=== PATIENT | male | born 1950 | race Caucasian/White ===

== ENCOUNTER 2018-02-03 12:25 | Inpatient (IN) | payer MEDICARE, MEDICAID ==
[~2018-02-03] VITALS: Ht 182.9 cm; Wt 84.2 kg
[~2018-02-03 12:25] MED LIST: AMLO5TAB16 PO; ASPI-1265 PO; ATOR10TA PO; CLOP75TA35 PO; ENOX100D5 SUBCUT; LISI-604 PO; NITR0.4T51 SL; SPIR25TA3 PO; WARF2.5T PO
[2018-02-03 13:45] LABS: BASOPHILS % (AUTO) 0.3 % (0-1); EOSINOPHILS # (AUTO) 0.1 X10'3 (0-0.9); EOSINOPHILS % (AUTO) 0.9 % (0-6); HEMOGLOBIN 12.9 g/dl (14.0-17.9); MEAN CORPUSCULAR HEMOGLOBIN 30.1 PG (27.0-31.0); MEAN CORPUSCULAR VOLUME 91.1 FL (78-98); MEAN PLATELET VOLUME 8.3 FL (7.4-10.4); MONOCYTES # (AUTO) 0.8 X10'3 (0-0.9); MONOCYTES % (AUTO) 11.4 % (2-12); NEUTROPHILS # (AUTO) 4.8 X10'3 (1.8-7.7); NEUTROPHILS % (AUTO) 72.4 % (42-75); PLATELET COUNT 178 X10'3 (140-440); RED BLOOD COUNT 4.29 X10'6 (4.70-6.10); RED CELL DISTRIBUTION WIDTH 13.1 % (11.5-14.5); WHITE BLOOD COUNT 6.6 X10'3 (4.5-11.0)
[2018-02-03 13:56] LABS: PARTIAL THROMBOPLASTIN TIME 30 SECONDS (22-32); PROTHROMBIN TIME 10.2 SECONDS (9.0-12.0)
[2018-02-03 14:02] LABS: ALANINE AMINOTRANSFERASE 53 U/L (12-78); ALBUMIN 3.4 G/DL (3.4-5.0); ALBUMIN/GLOBULIN RATIO 0.8 (1.1-1.5); ALKALINE PHOSPHATASE 75 IU/L (46-116); ANION GAP 7 (8-16); ASPARTATE AMINO TRANSFERASE 31 U/L (10-37); BILIRUBIN,TOTAL 1.2 MG/DL (0.1-1.0); BLOOD UREA NITROGEN 18 MG/DL (7-18); BUN/CREATININE RATIO 17.1 (5.4-32.0); CALCIUM 8.4 MG/DL (8.5-10.1); CHLORIDE 107 MMOL/L (99-107); CREATININE 1.05 MG/DL (0.60-1.10); GLUCOSE 128 MG/DL (70-104); LIPASE 182 U/L (73-393); POTASSIUM 4.1 MMOL/L (3.5-5.1); SODIUM 146 MMOL/L (135-145); TOTAL CARBON DIOXIDE 31.8 MMOL/L (24-32); TOTAL PROTEIN 7.5 G/DL (6.4-8.2); eGFR 70 ML/MIN
[2018-02-03] MEDS ORDERED: ipratropium/albuterol 3ml nebule NEB ONE (15:15)
[2018-02-03] MEDS ORDERED: albuterol 2.5 MG/3 ML nebule NEB ONE ×2 (15:15→20:30)
[2018-02-03] MEDS ORDERED: CefTRIAXone 2gm/NS 100ml IVPB 100 ML IV ONE (16:10)
[2018-02-03] MEDS ORDERED: amLODIPine 5mg tablet PO ONE (17:55)
[2018-02-03] MEDS ORDERED: LOSA1TAB39 (18:15)
[2018-02-03] MEDS ORDERED: albuterol 2.5 MG/3 ML nebule ONE (20:37)
[2018-02-03] MEDS ORDERED: nitroGLYCERIN 0.4mg SUBLingual tab SL PRN (20:50)
[2018-02-03] MEDS ORDERED: magnesium hydroxide 30ml (MOM) UD suspension PO PRN (20:50)
[2018-02-03] MEDS ORDERED: mag hydrox/Alum hydrox/simeth 30ml oral suspension PO PRN (20:50)
[2018-02-03] MEDS ORDERED: ondansetron/PF 4mg/2ml inj IV PRN (20:50)
[2018-02-03] MEDS ORDERED: acetaminophen 325mg tablet PO PRN (20:50)
[2018-02-03] MEDS ORDERED: morphine 4 MG/ML inj SYRINge IV PRN (20:50)
[2018-02-03] MEDS ORDERED: metoprolol tartrate 1mg/ml inj IV PRN (20:55)
[2018-02-03] MEDS: metoprolol tartrate 50mg tablet PO SCH (21:28)
[2018-02-03] MEDS ORDERED: iohexol 300mg/ml 100ml inj. ONE (21:46)
[2018-02-03] MEDS ORDERED: methylPREDNISolone sod succ 125mg/2ml vial IV ONE (22:25)
[2018-02-03 23:16] LABS: ABG BASE EXCESS 3.9 mmol/L (-2.0-3.0); ABG HCO3 29.5 mmol/L (22.0-26.0); ABG OXYGEN SATURATION 89.9 % (95-98); ABG PCO2 (T) 48.3 mmHg (35.0-48.0); ABG PH (T) 7.404 (7.350-7.450); ALLEN'S TEST Positive; FCOHb 1.1 % (0.5-1.5); FLOW 3 L/min; FO2Hb 88.9 % (94-100); RESPIRATORY RATE (OBSERVED) 18 b/min; TOTAL HEMOGLOBIN 13.3 G/dl (14.0-18.0)
[2018-02-03 23:25] VITALS: BP 173/96
[2018-02-04 02:30] VITALS: BP 111/87
[2018-02-04 04:11] LABS: BASOPHILS % (AUTO) 0 % (0-1); EOSINOPHILS # (AUTO) 0.1 X10'3 (0-0.9); HEMATOCRIT 38.9 % (42.0-52.0); HEMOGLOBIN 12.7 g/dl (14.0-17.9); LYMPHOCYTES # (AUTO) 0.4 X10'3 (1.1-4.8); LYMPHOCYTES % (AUTO) 5.9 % (21-51); MEAN CORPUSCULAR HEMOGLOBIN 30.3 PG (27.0-31.0); MEAN CORPUSCULAR HGB CONC 32.7 % (33.0-36.5); MEAN CORPUSCULAR VOLUME 92.6 FL (78-98); MEAN PLATELET VOLUME 8.4 FL (7.4-10.4); MONOCYTES # (AUTO) 0.1 X10'3 (0-0.9); NEUTROPHILS # (AUTO) 5.8 X10'3 (1.8-7.7); NEUTROPHILS % (AUTO) 91.1 % (42-75); PLATELET COUNT 159 X10'3 (140-440); RED CELL DISTRIBUTION WIDTH 12.9 % (11.5-14.5); WHITE BLOOD COUNT 6.4 X10'3 (4.5-11.0)
[2018-02-04 04:30] LABS: ALANINE AMINOTRANSFERASE 55 U/L (12-78); ALBUMIN 3.3 G/DL (3.4-5.0); ALBUMIN/GLOBULIN RATIO 0.8 (1.1-1.5); ALKALINE PHOSPHATASE 74 IU/L (46-116); ANION GAP 7 (8-16); ASPARTATE AMINO TRANSFERASE 34 U/L (10-37); BLOOD UREA NITROGEN 21 MG/DL (7-18); BUN/CREATININE RATIO 18.3 (5.4-32.0); CALCIUM 8.3 MG/DL (8.5-10.1); CHLORIDE 105 MMOL/L (99-107); CREATININE 1.15 MG/DL (0.60-1.10); GLUCOSE 209 MG/DL (70-104); POTASSIUM 4.4 MMOL/L (3.5-5.1); SODIUM 142 MMOL/L (135-145); TOTAL CARBON DIOXIDE 30.5 MMOL/L (24-32); TOTAL PROTEIN 7.5 G/DL (6.4-8.2); eGFR 63 ML/MIN
[2018-02-04 06:00] VITALS: BP 147/91
[2018-02-04] MEDS: metoprolol tartrate 50mg tablet PO SCH ×2 (07:07→19:38)
[2018-02-04] MEDS: amLODIPine 5mg tablet PO SCH (07:07)
[2018-02-04] MEDS: cefTRIAXone 1g/NS 100ml IVPB 100 ML IV SCH (07:07)
[2018-02-04] MEDS ORDERED: lisinopril 5mg tablet PO SCH (08:00)
[2018-02-04] MEDS: ipratropium/albuterol 3ml nebule NEB PRN ×2 (09:12→14:59)
[2018-02-04 09:47] VITALS: BP 151/88
[2018-02-04 18:00] VITALS: BP 148/84
[2018-02-04] MEDS: lactobacillus rhamnosus 10,000 MMU CELLS/CAPSULE PO SCH (19:38)
[2018-02-04 22:00] VITALS: BP 163/101
[2018-02-05 05:00] VITALS: BP 150/91
[2018-02-05 05:59] LABS: BASOPHILS % (AUTO) 0.4 % (0-1); EOSINOPHILS # (AUTO) 0.1 X10'3 (0-0.9); EOSINOPHILS % (AUTO) 1.4 % (0-6); HEMATOCRIT 41.5 % (42.0-52.0); HEMOGLOBIN 13.6 g/dl (14.0-17.9); LYMPHOCYTES # (AUTO) 1.9 X10'3 (1.1-4.8); LYMPHOCYTES % (AUTO) 22.9 % (21-51); MEAN CORPUSCULAR HEMOGLOBIN 30.6 PG (27.0-31.0); MEAN CORPUSCULAR HGB CONC 32.7 % (33.0-36.5); MEAN CORPUSCULAR VOLUME 93.4 FL (78-98); MEAN PLATELET VOLUME 8.6 FL (7.4-10.4); MONOCYTES # (AUTO) 0.9 X10'3 (0-0.9); NEUTROPHILS # (AUTO) 5.6 X10'3 (1.8-7.7); NEUTROPHILS % (AUTO) 65.3 % (42-75); PLATELET COUNT 190 X10'3 (140-440); RED BLOOD COUNT 4.44 X10'6 (4.70-6.10); WHITE BLOOD COUNT 8.5 X10'3 (4.5-11.0)
[2018-02-05 06:22] LABS: ALANINE AMINOTRANSFERASE 67 U/L (12-78); ALBUMIN 3.2 G/DL (3.4-5.0); ALBUMIN/GLOBULIN RATIO 0.7 (1.1-1.5); ALKALINE PHOSPHATASE 75 IU/L (46-116); ANION GAP -1 (8-16); ASPARTATE AMINO TRANSFERASE 42 U/L (10-37); BILIRUBIN,TOTAL 0.7 MG/DL (0.1-1.0); BLOOD UREA NITROGEN 31 MG/DL (7-18); BUN/CREATININE RATIO 25.8 (5.4-32.0); CALCIUM 8.7 MG/DL (8.5-10.1); CHLORIDE 102 MMOL/L (99-107); GLUCOSE 121 MG/DL (70-104); SODIUM 133 MMOL/L (135-145); TOTAL CARBON DIOXIDE 32.4 MMOL/L (24-32); TOTAL PROTEIN 7.6 G/DL (6.4-8.2); eGFR 60 ML/MIN
[2018-02-05 08:00] LABS: HIV ANTIBODY 1&2 RAPID NON-REACTIVE (Neg)
[2018-02-05] MEDS ORDERED: lisinopril 5mg tablet PO SCH (08:00)
[2018-02-05] MEDS: cefTRIAXone 1g/NS 100ml IVPB 100 ML IV SCH (08:55)
[2018-02-05] MEDS: lactobacillus rhamnosus 10,000 MMU CELLS/CAPSULE PO SCH ×2 (08:55→19:37)
[2018-02-05] MEDS: amLODIPine 5mg tablet PO SCH (08:55)
[2018-02-05] MEDS: metoprolol tartrate 50mg tablet PO SCH (08:56)
[2018-02-05 10:00] VITALS: BP 141/92
[2018-02-05] MEDS: ipratropium/albuterol 3ml nebule NEB SCH ×3 (12:31→23:44)
[2018-02-05 18:00] VITALS: BP 135/85
[2018-02-05] MEDS: hyDRALAzine 10mg tablet PO SCH (19:37)
[2018-02-05 22:00] VITALS: BP 171/95
[2018-02-06] MEDS: ipratropium/albuterol 3ml nebule NEB SCH ×4 (05:33→14:37)
[2018-02-06 06:00] VITALS: BP 162/97
[2018-02-06 06:20] LABS: BASOPHILS % (AUTO) 0.3 % (0-1); EOSINOPHILS # (AUTO) 0.1 X10'3 (0-0.9); EOSINOPHILS % (AUTO) 1.8 % (0-6); HEMATOCRIT 37.6 % (42.0-52.0); HEMOGLOBIN 12.6 g/dl (14.0-17.9); LYMPHOCYTES # (AUTO) 1.7 X10'3 (1.1-4.8); MEAN CORPUSCULAR HEMOGLOBIN 30.5 PG (27.0-31.0); MEAN CORPUSCULAR HGB CONC 33.4 % (33.0-36.5); MEAN CORPUSCULAR VOLUME 91.4 FL (78-98); MEAN PLATELET VOLUME 8.5 FL (7.4-10.4); MONOCYTES # (AUTO) 0.7 X10'3 (0-0.9); MONOCYTES % (AUTO) 10.3 % (2-12); NEUTROPHILS # (AUTO) 4.1 X10'3 (1.8-7.7); NEUTROPHILS % (AUTO) 61.6 % (42-75); PLATELET COUNT 180 X10'3 (140-440); RED BLOOD COUNT 4.12 X10'6 (4.70-6.10); RED CELL DISTRIBUTION WIDTH 12.7 % (11.5-14.5); WHITE BLOOD COUNT 6.6 X10'3 (4.5-11.0)
[2018-02-06 06:39] LABS: ALANINE AMINOTRANSFERASE 61 U/L (12-78); ALBUMIN 2.9 G/DL (3.4-5.0); ALBUMIN/GLOBULIN RATIO 0.8 (1.1-1.5); ALKALINE PHOSPHATASE 66 IU/L (46-116); ANION GAP 5 (8-16); ASPARTATE AMINO TRANSFERASE 34 U/L (10-37); BILIRUBIN,TOTAL 1.2 MG/DL (0.1-1.0); BLOOD UREA NITROGEN 30 MG/DL (7-18); BUN/CREATININE RATIO 26.1 (5.4-32.0); CALCIUM 8.7 MG/DL (8.5-10.1); CHLORIDE 107 MMOL/L (99-107); CREATININE 1.15 MG/DL (0.60-1.10); GLUCOSE 97 MG/DL (70-104); POTASSIUM 4.2 MMOL/L (3.5-5.1); SODIUM 145 MMOL/L (135-145); TOTAL CARBON DIOXIDE 32.7 MMOL/L (24-32); TOTAL PROTEIN 6.6 G/DL (6.4-8.2); eGFR 63 ML/MIN
[2018-02-06] MEDS ORDERED: HYDROchlorothiazide 12.5mg capsule PO SCH (08:00)
[2018-02-06] MEDS ORDERED: CefTRIAXone/D5W-Rocephin 1gm 50 ML IV SCH (08:00)
[2018-02-06] MEDS: lactobacillus rhamnosus 10,000 MMU CELLS/CAPSULE PO SCH (08:47)
[2018-02-06] MEDS: amLODIPine 5mg tablet PO SCH (08:47)
[2018-02-06] MEDS: hyDRALAzine 10mg tablet PO SCH (08:48)
[2018-02-06 10:00] VITALS: BP 166/98
[2018-02-06 10:55] LABS: ABG BASE EXCESS 3.8 mmol/L (-2.0-3.0); ABG HCO3 28.8 mmol/L (22.0-26.0); ABG OXYGEN SATURATION 93.2 % (95-98); ABG PCO2 (T) 44.7 mmHg (35.0-48.0); ABG PH (T) 7.427 (7.350-7.450); ALLEN'S TEST Positive; FCOHb 0.8 % (0.5-1.5); FLOW 2 L/min; FMetHb 0.2 % (0.3-1.12); FO2Hb 92.3 % (94-100); TOTAL HEMOGLOBIN 13.2 G/dl (14.0-18.0)
[2018-02-06] MEDS ORDERED: AZIT500T2 PO (14:02)
[2018-02-06] MEDS ORDERED: ipratropium/albuterol 3ml nebule NEB SCH (19:00)
== END 2018-02-06 16:35 | disposition home or self-care (01) | DRG 193 ==
LOC: ER 12:25 → ED HOLD 20:46 → CMPBEDREQ 23:21 → SUR 3N 23:30 → ORTHO 4S 02-04 02:00
PROVIDERS: ADMIT Internal Medicine; ATTEND Internal Medicine
PROC: BW241ZZ Computerized Tomography (CT Scan) of Chest and Abdomen using Low Osmolar Contrast (ICD-10-PCS; principal; 2018-02-03)
DX: J18.1 Lobar pneumonia, unspecified organism (principal); J96.01 Acute respiratory failure with hypoxia; R04.2 Hemoptysis; I31.3 Pericardial effusion (noninflammatory); R10.9 Unspecified abdominal pain; I25.10 Atherosclerotic heart disease of native coronary artery without angina pectoris; I48.91 Unspecified atrial fibrillation; I08.3 Combined rheumatic disorders of mitral, aortic and tricuspid valves; I10 Essential (primary) hypertension; N28.9 Disorder of kidney and ureter, unspecified; I49.9 Cardiac arrhythmia, unspecified; Z79.899 Other long term (current) drug therapy; Z79.01 Long term (current) use of anticoagulants; Z79.82 Long term (current) use of aspirin; Z79.02 Long term (current) use of antithrombotics/antiplatelets; Z87.891 Personal history of nicotine dependence
CPT/HCPCS: 36415; 36600; 71045; 71260; 74022; 80053; 82803; 83605; 83690; 83880; 84145; 84484; 85018; 85025; 85610; 85730; 86703; 87040; 87070; 93306; 94640; 94760; 96365; 99285; A6213; J0696; J2270; J2405; J2930; J3490; J7030; Q9967

== ENCOUNTER 2018-07-14 14:15 | Inpatient (IN) | payer MEDICARE, MEDICAID ==
[~2018-07-14] VITALS: Ht 182.9 cm; Wt 116.4 kg
[~2018-07-14 14:15] MED LIST changes: -ATOR10TA PO; -ENOX100D5 SUBCUT; -LISI-604 PO; +LOSA1TAB39; -SPIR25TA3 PO
[2018-07-14 14:45] LABS: NEUTROPHILS # (AUTO) 6.4 X10'3 (1.8-7.7); WHITE BLOOD COUNT 8.1 X10'3 (4.5-11.0)
[2018-07-14 14:48] LABS: BASOPHILS % (AUTO) 0.3 % (0-1); EOSINOPHILS # (AUTO) 0.1 X10'3 (0-0.9); EOSINOPHILS % (AUTO) 0.7 % (0-6); HEMOGLOBIN 11.7 g/dl (14.0-17.9); LYMPHOCYTES % (AUTO) 12.7 % (21-51); MEAN CORPUSCULAR HEMOGLOBIN 30.8 PG (27.0-31.0); MEAN CORPUSCULAR HGB CONC 33.4 % (33.0-36.5); MEAN CORPUSCULAR VOLUME 92.1 FL (78-98); MEAN PLATELET VOLUME 7.9 FL (7.4-10.4); MONOCYTES # (AUTO) 0.6 X10'3 (0-0.9); NEUTROPHILS % (AUTO) 78.3 % (42-75); PLATELET COUNT 157 X10'3 (140-440); RED CELL DISTRIBUTION WIDTH 13.1 % (11.5-14.5)
[2018-07-14 14:55] LABS: INR 1.1 INR; PARTIAL THROMBOPLASTIN TIME 26 SECONDS (22-32); PROTHROMBIN TIME 11.2 SECONDS (9.0-12.0)
[2018-07-14 14:59] LABS: ALANINE AMINOTRANSFERASE 30 U/L (12-78); ALBUMIN 3.4 G/DL (3.4-5.0); ALKALINE PHOSPHATASE 87 IU/L (46-116); ANION GAP 9 (8-16); ASPARTATE AMINO TRANSFERASE 26 U/L (10-37); BILIRUBIN,TOTAL 2.7 MG/DL (0.1-1.0); BLOOD UREA NITROGEN 18 MG/DL (7-18); BUN/CREATININE RATIO 15.5 (5.4-32.0); CALCIUM 8.7 MG/DL (8.5-10.1); CHLORIDE 107 MMOL/L (99-107); CREATININE 1.16 MG/DL (0.60-1.10); GLUCOSE 102 MG/DL (70-104); POTASSIUM 3.9 MMOL/L (3.5-5.1); SODIUM 142 MMOL/L (135-145); TOTAL CARBON DIOXIDE 26.3 MMOL/L (24-32); TOTAL PROTEIN 6.8 G/DL (6.4-8.2); eGFR 62 ML/MIN
[2018-07-14] MEDS ORDERED: cloNIDine 0.1 mg tablet PO ONE (15:05)
[2018-07-14] MEDS ORDERED: furosemide 10 MG/1 ML 10ml inj IV ONE (15:05)
[2018-07-14] MEDS ORDERED: morphine 4 MG/ML inj SYRINge IV PRN ×2 (15:35)
[2018-07-14] MEDS ORDERED: ondansetron/PF 4mg/2ml inj IV PRN (15:35)
[2018-07-14] MEDS ORDERED: magnesium hydroxide 30ml (MOM) UD suspension PO PRN (15:35)
[2018-07-14] MEDS ORDERED: HYDROcodone/acetaminophen 5mg/325mg tablet PO PRN (15:35)
[2018-07-14] MEDS ORDERED: acetaminophen 325mg tablet PO PRN (15:35)
[2018-07-14] MEDS: furosemide 40mg/4ml inj IV SCH ×2 (15:40→19:11)
[2018-07-14] MEDS ORDERED: nitroGLYCERIN 0.2mg/hour patch TD ONE (15:45)
[2018-07-14] MEDS ORDERED: WARF-55 PO (16:29)
[2018-07-14] MEDS ORDERED: AMLO5TAB PO (16:49)
[2018-07-14] MEDS ORDERED: CLOP75TA33 PO (16:49)
[2018-07-14] MEDS ORDERED: ASPI-611 PO (16:49)
[2018-07-14] MEDS ORDERED: NITR0.4T SL (16:49)
[2018-07-14] MEDS ORDERED: metoprolol succinate 25mg (24-HOUR) SR. Tablet PO SCH (18:30)
[2018-07-14] MEDS ORDERED: nitroGLYCERIN 0.4mg SUBLingual tab SL PRN (18:30)
[2018-07-14 19:00] VITALS: BP 178/102
[2018-07-14 23:00] VITALS: BP 161/100
[2018-07-15] MEDS: mag hydrox/Alum hydrox/simeth 30ml oral suspension PO PRN ×2 (01:42→08:00)
[2018-07-15 03:00] VITALS: BP 165/110
[2018-07-15 03:13] LABS: BASOPHILS # (AUTO) 0.1 X10'3 (0-0.2); BASOPHILS % (AUTO) 1.5 % (0-1); EOSINOPHILS # (AUTO) 0.1 X10'3 (0-0.9); EOSINOPHILS % (AUTO) 1.1 % (0-6); HEMOGLOBIN 12.4 g/dl (14.0-17.9); LYMPHOCYTES % (AUTO) 11.6 % (21-51); MEAN CORPUSCULAR HEMOGLOBIN 30.4 PG (27.0-31.0); MEAN CORPUSCULAR HGB CONC 32.5 % (33.0-36.5); MEAN CORPUSCULAR VOLUME 93.6 FL (78-98); MEAN PLATELET VOLUME 8.1 FL (7.4-10.4); MONOCYTES # (AUTO) 0.8 X10'3 (0-0.9); MONOCYTES % (AUTO) 9.5 % (2-12); NEUTROPHILS # (AUTO) 6.6 X10'3 (1.8-7.7); NEUTROPHILS % (AUTO) 76.3 % (42-75); PLATELET COUNT 172 X10'3 (140-440); RED BLOOD COUNT 4.06 X10'6 (4.70-6.10); RED CELL DISTRIBUTION WIDTH 14.1 % (11.5-14.5); WHITE BLOOD COUNT 8.6 X10'3 (4.5-11.0)
[2018-07-15 03:31] LABS: ALBUMIN 3.3 G/DL (3.4-5.0); ANION GAP 7 (8-16); BLOOD UREA NITROGEN 22 MG/DL (7-18); BUN/CREATININE RATIO 18.3 (5.4-32.0); CALCIUM 8.7 MG/DL (8.5-10.1); CHLORIDE 104 MMOL/L (99-107); GLUCOSE 156 MG/DL (70-104); POTASSIUM 3.5 MMOL/L (3.5-5.1); SODIUM 141 MMOL/L (135-145); TOTAL CARBON DIOXIDE 29.8 MMOL/L (24-32); eGFR 72 ML/MIN
[2018-07-15 06:00] VITALS: BP 156/108
[2018-07-15] MEDS: enoxaparin 40mg/0.4ml syringe SUBCUT SCH ×2 (07:20→07:36)
[2018-07-15] MEDS: clopidogrel 75mg tablet PO SCH (07:20)
[2018-07-15] MEDS: aspirin 81mg tablet.DR PO SCH (07:20)
[2018-07-15] MEDS: furosemide 40mg/4ml inj IV SCH ×2 (07:28→19:40)
[2018-07-15] MEDS ORDERED: amLODIPine 5mg tablet PO SCH (08:00)
[2018-07-15] MEDS ORDERED: non-formulary drug (Amlodipine Besylate 1 TABLET) PO SCH (08:00)
[2018-07-15] MEDS ORDERED: non-formulary drug (Aspirin (Aspir 81) 1 TAB) PO SCH (08:00)
[2018-07-15 11:00] VITALS: BP 151/88
[2018-07-15 15:00] VITALS: BP 160/103
[2018-07-15 18:00] VITALS: BP 165/88
[2018-07-15] MEDS: metoprolol tartrate 12.5mg (1/2 tablet) PO SCH (19:34)
[2018-07-15] MEDS ORDERED: metoprolol tartrate 25mg tablet PO SCH (20:00)
[2018-07-15 22:00] VITALS: BP 152/92
[2018-07-16 02:00] VITALS: BP 198/110
[2018-07-16] MEDS ORDERED: hydrALAZINE 20mg/ml inj. IV PRN (03:30)
[2018-07-16] MEDS: mag hydrox/Alum hydrox/simeth 30ml oral suspension PO PRN (04:11)
[2018-07-16 07:03] VITALS: BP 185/91
[2018-07-16] MEDS ORDERED: hyDRALAzine 10mg tablet PO SCH (08:00)
[2018-07-16] MEDS ORDERED: lisinopril 20mg tablet PO SCH (08:00)
[2018-07-16] MEDS: aspirin 81mg tablet.DR PO SCH (08:56)
[2018-07-16] MEDS: metoprolol tartrate 12.5mg (1/2 tablet) PO SCH (08:56)
[2018-07-16] MEDS: enoxaparin 40mg/0.4ml syringe SUBCUT SCH (08:56)
[2018-07-16] MEDS: clopidogrel 75mg tablet PO SCH (08:56)
[2018-07-16] MEDS: furosemide 40mg/4ml inj IV SCH (08:56)
[2018-07-16] MEDS ORDERED: FURO20TA4 PO (09:29)
[2018-07-16] MEDS ORDERED: OMEP20CA10 PO (09:29)
[2018-07-16] MEDS ORDERED: METO25TA6 PO (09:29)
[2018-07-16] MEDS ORDERED: LISI-600 PO (09:29)
== END 2018-07-16 12:23 | disposition home or self-care (01) | DRG 304 ==
LOC: ER 14:15 → ED HOLD 15:32 → PCU 3S 17:55
PROVIDERS: ADMIT Internal Medicine; ATTEND Internal Medicine
DX: I16.0 Hypertensive urgency (principal); I50.33 Acute on chronic diastolic (congestive) heart failure; I11.0 Hypertensive heart disease with heart failure; I48.0 Paroxysmal atrial fibrillation; I27.20 Pulmonary hypertension, unspecified; I73.9 Peripheral vascular disease, unspecified; I25.10 Atherosclerotic heart disease of native coronary artery without angina pectoris; Z90.49 Acquired absence of other specified parts of digestive tract; Z95.5 Presence of coronary angioplasty implant and graft; Z91.14 Patient's other noncompliance with medication regimen; Z79.01 Long term (current) use of anticoagulants; Z79.02 Long term (current) use of antithrombotics/antiplatelets; Z79.82 Long term (current) use of aspirin; Z71.89 Other specified counseling
CPT/HCPCS: 36415; 71045; 80048; 80053; 83880; 84484; 85025; 85610; 85730; 87070; 93005; 93306; 93970; 96374; 99285; A6250; J0360; J1650; J1940

== ENCOUNTER 2018-11-08 15:59 | Inpatient (IN) | payer MEDICARE, MEDICAID ==
[~2018-11-08] VITALS: Ht 182.9 cm; Wt 92.4 kg
[~2018-11-08 15:59] MED LIST changes: -AMLO5TAB16 PO; -ASPI-1265 PO; +ASPI-611 PO; -CLOP75TA35 PO; +FURO20TA4 PO; +LISI-600 PO; -LOSA1TAB39; +METO25TA6 PO; -NITR0.4T51 SL; +OMEP20CA10 PO; +WARF-55 PO; -WARF2.5T PO
[2018-11-08 16:52] LABS: BASOPHILS % (AUTO) 0.2 % (0-1); EOSINOPHILS # (AUTO) 0.1 X10'3 (0-0.9); EOSINOPHILS % (AUTO) 1.9 % (0-6); HEMOGLOBIN 12.4 g/dl (14.0-17.9); LYMPHOCYTES # (AUTO) 0.8 X10'3 (1.1-4.8); MEAN CORPUSCULAR HEMOGLOBIN 29.5 PG (27.0-31.0); MEAN CORPUSCULAR HGB CONC 31.8 % (33.0-36.5); MEAN CORPUSCULAR VOLUME 92.7 FL (78-98); MEAN PLATELET VOLUME 8.5 FL (7.4-10.4); MONOCYTES # (AUTO) 0.8 X10'3 (0-0.9); MONOCYTES % (AUTO) 12.9 % (2-12); NEUTROPHILS # (AUTO) 4.3 X10'3 (1.8-7.7); PLATELET COUNT 188 X10'3 (140-440); RED CELL DISTRIBUTION WIDTH 15.5 % (11.5-14.5)
[2018-11-08 17:08] LABS: INR 1.2 INR; PARTIAL THROMBOPLASTIN TIME 25 SECONDS (22-32)
[2018-11-08] MEDS ORDERED: aspirin 325mg tablet PO ONE (17:15)
[2018-11-08 17:19] LABS: ALANINE AMINOTRANSFERASE 29 U/L (12-78); ALBUMIN 3.4 G/DL (3.4-5.0); ALBUMIN/GLOBULIN RATIO 0.9 (1.1-1.5); ALKALINE PHOSPHATASE 122 IU/L (46-116); ANION GAP 10 (8-16); ASPARTATE AMINO TRANSFERASE 29 U/L (10-37); BILIRUBIN,TOTAL 2.3 MG/DL (0.1-1.0); BLOOD UREA NITROGEN 27 MG/DL (7-18); CALCIUM 8.7 MG/DL (8.5-10.1); CHLORIDE 109 MMOL/L (99-107); CREATININE 1.23 MG/DL (0.60-1.10); GLUCOSE 102 MG/DL (70-104); POTASSIUM 4.1 MMOL/L (3.5-5.1); SODIUM 146 MMOL/L (135-145); TOTAL CARBON DIOXIDE 26.6 MMOL/L (24-32); TOTAL PROTEIN 7.1 G/DL (6.4-8.2); eGFR 70 ML/MIN
[2018-11-08 17:53] LABS: URINE AMPHETAMINE SCREEN NEGATIVE (Neg); URINE BARBITUATE SCREEN NEGATIVE (Neg); URINE BENZODIAZEPINES SCREEN NEGATIVE (Neg); URINE CANNABINOID SCREEN NEGATIVE (Neg); URINE COCAINE SCREEN NEGATIVE (Neg); URINE METHADONE SCREEN NEGATIVE (Neg); URINE OPIATE SCREEN NEGATIVE (Neg); URINE PHENCYCLIDINE SCREEN NEGATIVE (Neg)
[2018-11-08] MEDS ORDERED: furosemide 10 MG/1 ML 10ml inj IV ONE (18:25)
[2018-11-08] MEDS ORDERED: LOSA25TA96 PO (19:07)
[2018-11-08] MEDS ORDERED: mag hydrox/Alum hydrox/simeth 30ml oral suspension PO PRN (19:45)
[2018-11-08] MEDS ORDERED: magnesium hydroxide 30ml (MOM) UD suspension PO PRN (19:45)
[2018-11-08] MEDS ORDERED: acetaminophen 325mg tablet PO PRN (19:45)
[2018-11-08] MEDS ORDERED: ondansetron/PF 4mg/2ml inj IV PRN (19:45)
[2018-11-08] MEDS: metoprolol tartrate 12.5mg (1/2 tablet) PO SCH (20:21)
[2018-11-08] MEDS: furosemide 40mg/4ml inj IV SCH (20:22)
[2018-11-08] MEDS: heparin, porcine 5000 units/ml vial SQ SCH (20:25)
[2018-11-09] VITALS (12 sets, daily range): BP systolic 141–194; BP diastolic 88–130
[2018-11-09] MEDS ORDERED: losartan 50mg tablet PO ONE (02:35)
[2018-11-09] MEDS: HYDROcodone/acetaminophen 5mg/325mg tablet PO PRN ×2 (03:00→11:25)
[2018-11-09 05:08] LABS: BASOPHILS % (AUTO) 0.3 % (0-1); EOSINOPHILS # (AUTO) 0.2 X10'3 (0-0.9); EOSINOPHILS % (AUTO) 2.3 % (0-6); HEMATOCRIT 36.5 % (42.0-52.0); HEMOGLOBIN 11.5 g/dl (14.0-17.9); LYMPHOCYTES # (AUTO) 0.9 X10'3 (1.1-4.8); LYMPHOCYTES % (AUTO) 13.9 % (21-51); MEAN CORPUSCULAR HEMOGLOBIN 29.2 PG (27.0-31.0); MEAN CORPUSCULAR HGB CONC 31.5 % (33.0-36.5); MEAN CORPUSCULAR VOLUME 92.4 FL (78-98); MEAN PLATELET VOLUME 8.2 FL (7.4-10.4); MONOCYTES % (AUTO) 15.2 % (2-12); NEUTROPHILS # (AUTO) 4.5 X10'3 (1.8-7.7); NEUTROPHILS % (AUTO) 68.3 % (42-75); PLATELET COUNT 203 X10'3 (140-440); RED BLOOD COUNT 3.94 X10'6 (4.70-6.10); RED CELL DISTRIBUTION WIDTH 15.2 % (11.5-14.5); WHITE BLOOD COUNT 6.6 X10'3 (4.5-11.0)
[2018-11-09 05:23] LABS: ALANINE AMINOTRANSFERASE 25 U/L (12-78); ALBUMIN 3.4 G/DL (3.4-5.0); ALKALINE PHOSPHATASE 111 IU/L (46-116); ANION GAP 10 (8-16); ASPARTATE AMINO TRANSFERASE 24 U/L (10-37); BILIRUBIN,TOTAL 2.2 MG/DL (0.1-1.0); BLOOD UREA NITROGEN 28 MG/DL (7-18); BUN/CREATININE RATIO 21.7 (5.4-32.0); CALCIUM 8.9 MG/DL (8.5-10.1); CHLORIDE 108 MMOL/L (99-107); CREATININE 1.29 MG/DL (0.60-1.10); GLUCOSE 104 MG/DL (70-104); POTASSIUM 3.7 MMOL/L (3.5-5.1); SODIUM 148 MMOL/L (135-145); TOTAL CARBON DIOXIDE 30.5 MMOL/L (24-32); TOTAL PROTEIN 6.9 G/DL (6.4-8.2); eGFR 67 ML/MIN
[2018-11-09 05:26] LABS: MAGNESIUM 1.8 MG/DL (1.5-2.4)
[2018-11-09] MEDS: pantoprazole 40mg Tablet.DR PO SCH (07:38)
[2018-11-09] MEDS: aspirin 81mg tablet.DR PO SCH (07:39)
[2018-11-09] MEDS: metoprolol tartrate 12.5mg (1/2 tablet) PO SCH ×2 (07:39→20:16)
[2018-11-09] MEDS: heparin, porcine 5000 units/ml vial SQ SCH ×2 (07:40→20:00)
[2018-11-09] MEDS: atorvastatin 20mg tablet PO SCH (07:40)
[2018-11-09] MEDS: furosemide 40mg/4ml inj IV SCH ×2 (07:40→20:15)
[2018-11-09] MEDS: losartan 50mg tablet PO SCH (07:40)
[2018-11-09] MEDS ORDERED: non-formulary drug (Aspirin (Aspir 81) 1 TAB) PO SCH (08:00)
[2018-11-09] MEDS ORDERED: non-formulary drug (Omeprazole 1 CAP) PO SCH (08:00)
[2018-11-09] MEDS ORDERED: losartan 25mg tablet PO SCH (08:00)
[2018-11-09 09:04] LABS: CHOL/HDL RATIO 3.6 (0.00-4.99); CHOLESTEROL 115 MG/DL (0-200); HDL CHOLESTEROL 32 MG/DL (35-60); LDL CHOLESTEROL 70 MG/DL (50-100); TRIGLYCERIDES 72 MG/DL (20-135)
[2018-11-09] MEDS ORDERED: iohexol 350MG/ML 100ml bottle IV ONE (16:55)
[2018-11-09] MEDS ORDERED: fentaNYL/PF 50MCG/1 ML 2ML syringe ONE (16:55)
[2018-11-09] MEDS ORDERED: LIDOcaine 1% (10mg/ml)w/preservative injection 20ml MDV ONE (16:55)
[2018-11-09] MEDS ORDERED: midazolam 2 mg/2 ml injection ONE (16:55)
[2018-11-09] MEDS ORDERED: nitroGLYCERIN 0.4mg SUBLingual tab SL PRN (19:45)
[2018-11-09] MEDS ORDERED: proCHLORperazine 10 MG/2 ml inj IV PRN (19:45)
[2018-11-09] MEDS ORDERED: OXAZEpam 15mg capsule PO PRN (19:45)
[2018-11-09] MEDS ORDERED: enalaprilat dihydrate 2.5mg/2ml vial IV ONE (21:20)
[2018-11-09] MEDS ORDERED: cloNIDine 0.1 mg tablet PO ONE (21:20)
[2018-11-10] MEDS: cloNIDine 0.1 mg tablet PO SCH ×2 (02:12→07:30)
[2018-11-10 03:00] VITALS: BP 163/102
[2018-11-10 06:00] VITALS: BP 157/97
[2018-11-10 06:09] LABS: BASOPHILS % (AUTO) 0.5 % (0-1); EOSINOPHILS # (AUTO) 0.2 X10'3 (0-0.9); EOSINOPHILS % (AUTO) 2.9 % (0-6); HEMATOCRIT 36.3 % (42.0-52.0); HEMOGLOBIN 11.5 g/dl (14.0-17.9); LYMPHOCYTES % (AUTO) 16.8 % (21-51); MEAN CORPUSCULAR HEMOGLOBIN 29.5 PG (27.0-31.0); MEAN CORPUSCULAR HGB CONC 31.7 % (33.0-36.5); MEAN CORPUSCULAR VOLUME 93.2 FL (78-98); MEAN PLATELET VOLUME 8.3 FL (7.4-10.4); MONOCYTES # (AUTO) 0.8 X10'3 (0-0.9); MONOCYTES % (AUTO) 14.4 % (2-12); NEUTROPHILS # (AUTO) 3.8 X10'3 (1.8-7.7); NEUTROPHILS % (AUTO) 65.4 % (42-75); PLATELET COUNT 192 X10'3 (140-440); WHITE BLOOD COUNT 5.7 X10'3 (4.5-11.0)
[2018-11-10 06:16] LABS: ALANINE AMINOTRANSFERASE 21 U/L (12-78); ALBUMIN 3.1 G/DL (3.4-5.0); ALBUMIN/GLOBULIN RATIO 0.9 (1.1-1.5); ALKALINE PHOSPHATASE 104 IU/L (46-116); ANION GAP 11 (8-16); ASPARTATE AMINO TRANSFERASE 19 U/L (10-37); BILIRUBIN,TOTAL 2.2 MG/DL (0.1-1.0); BLOOD UREA NITROGEN 32 MG/DL (7-18); BUN/CREATININE RATIO 23.4 (5.4-32.0); CALCIUM 8.9 MG/DL (8.5-10.1); CHLORIDE 108 MMOL/L (99-107); CREATININE 1.37 MG/DL (0.60-1.10); GLUCOSE 126 MG/DL (70-104); POTASSIUM 3.4 MMOL/L (3.5-5.1); SODIUM 148 MMOL/L (135-145); TOTAL CARBON DIOXIDE 29.4 MMOL/L (24-32); TOTAL PROTEIN 6.6 G/DL (6.4-8.2); eGFR 62 ML/MIN
[2018-11-10] MEDS: losartan 50mg tablet PO SCH (07:29)
[2018-11-10 07:30] VITALS: BP_SYST 157
[2018-11-10] MEDS: atorvastatin 20mg tablet PO SCH (07:30)
[2018-11-10] MEDS: aspirin 81mg tablet.DR PO SCH (07:30)
[2018-11-10] MEDS: furosemide 40mg/4ml inj IV SCH (07:30)
[2018-11-10] MEDS: pantoprazole 40mg Tablet.DR PO SCH (07:30)
[2018-11-10] MEDS: metoprolol tartrate 12.5mg (1/2 tablet) PO SCH (07:30)
[2018-11-10] MEDS: heparin, porcine 5000 units/ml vial SQ SCH (07:35)
[2018-11-10] MEDS ORDERED: CLON0.1T20 PO (10:28)
[2018-11-10] MEDS ORDERED: APIX5TAB3 PO (10:28)
[2018-11-10] MEDS ORDERED: NITR0.4T51 SL (10:28)
[2018-11-10] MEDS ORDERED: ATOR20TA66 PO (10:28)
== END 2018-11-10 13:05 | disposition home or self-care (01) | DRG 286 ==
LOC: ER 16:00 → ED HOLD 19:45 → MED 3N 11-09 01:16
PROVIDERS: ADMIT Internal Medicine; ATTEND Family Medicine
PROC: 4A023N7 Measurement of Cardiac Sampling and Pressure, Left Heart, Percutaneous Approach (ICD-10-PCS; principal; 2018-11-09)
PROC: B2111ZZ Fluoroscopy of Multiple Coronary Arteries using Low Osmolar Contrast (ICD-10-PCS; 2018-11-09)
PROC: B2151ZZ Fluoroscopy of Left Heart using Low Osmolar Contrast (ICD-10-PCS; 2018-11-09)
DX: I25.119 Atherosclerotic heart disease of native coronary artery with unspecified angina pectoris (principal); I50.33 Acute on chronic diastolic (congestive) heart failure; E87.1 Hypo-osmolality and hyponatremia; I13.0 Hypertensive heart and chronic kidney disease with heart failure and stage 1 through stage 4 chronic kidney disease, or unspecified chronic kidney disease; E87.0 Hyperosmolality and hypernatremia; I31.3 Pericardial effusion (noninflammatory); I16.0 Hypertensive urgency; I48.0 Paroxysmal atrial fibrillation; D64.9 Anemia, unspecified; E78.5 Hyperlipidemia, unspecified; E87.6 Hypokalemia; I87.8 Other specified disorders of veins; N18.9 Chronic kidney disease, unspecified; Z91.19 Patient's noncompliance with other medical treatment and regimen; Z95.5 Presence of coronary angioplasty implant and graft; Z90.49 Acquired absence of other specified parts of digestive tract; Z79.01 Long term (current) use of anticoagulants; Z79.899 Other long term (current) drug therapy; Z79.82 Long term (current) use of aspirin
CPT/HCPCS: 36415; 71045; 80053; 80061; 80305; 83735; 83880; 84484; 85025; 85610; 85730; 87070; 93005; 93306; 93459; 96374; 99152; 99285; A4620; A6257; C1760; C1769; G0378; J1644; J1940; J2001; J2250; J3010; Q9967

== ENCOUNTER 2018-12-27 14:31 | Outpatient (CLI) | payer MEDICARE, MEDICAID ==
[~2018-12-27 14:31] MED LIST changes: +APIX5TAB3 PO; +ATOR20TA66 PO; +CLON0.1T20 PO; -LISI-600 PO; +LOSA25TA96 PO; +NITR0.4T51 SL; -WARF-55 PO
[2018-12-27 15:32] LABS: GLUCOSE 105 MG/DL (70-104); SODIUM 142 MMOL/L (135-145)
[2018-12-27 15:33] LABS: ALBUMIN 3.4 G/DL (3.4-5.0); ANION GAP 7 (8-16); BLOOD UREA NITROGEN 24 MG/DL (7-18); BUN/CREATININE RATIO 19.2 (5.4-32.0); CALCIUM 8.7 MG/DL (8.5-10.1); CHLORIDE 105 MMOL/L (99-107); CREATININE 1.25 MG/DL (0.60-1.10); POTASSIUM 4.1 MMOL/L (3.5-5.1); TOTAL CARBON DIOXIDE 30.5 MMOL/L (24-32); eGFR 69 ML/MIN
== END 2018-12-27 23:59 | disposition home or self-care (01) ==
LOC: LAB 14:31
PROVIDERS: ATTEND Internal Medicine Interventional Cardiology
DX: I11.0 Hypertensive heart disease with heart failure (principal); I50.22 Chronic systolic (congestive) heart failure; I48.91 Unspecified atrial fibrillation; Z98.890 Other specified postprocedural states; Z79.899 Other long term (current) drug therapy; Z79.82 Long term (current) use of aspirin
CPT/HCPCS: 36415; 80048

== ENCOUNTER 2019-10-19 15:47 | Emergency (ER) | payer MEDICARE, MEDICAID ==
[~2019-10-19] VITALS: Ht 182.9 cm; Wt 104.5 kg
[~2019-10-19 15:47] MED LIST changes: +CLON0.1T2 PO; -CLON0.1T20 PO; -OMEP20CA10 PO; +OMEP20CA11 PO
[2019-10-19 15:48] VITALS: BP 201/129
[2019-10-19] MEDS ORDERED: diatr meglu/diatrizoate 30ml oral sol.-(3 dose) bottle PO SCH (16:35)
--- NOTE | 2019-10-19 16:52 | NUR ---
Aubrey chance in EDM - 10/19/19 at 1652 by [email or web address] Administered pt's first dose of gastroview. At that time the op
--- NOTE | 2019-10-19 16:52 | NUR ---
Administered pt's first dose of gastroview. Shortly after the pt was found attempting to ambulate out of the ED. When stopped to ask if he would like to stay and be treated, the pt became agitated, and began posturing. Staed that he was "not in fpc" and left the ED at that time.
[2019-10-19 16:59] LABS: BASOPHILS % (AUTO) 0.5 % (0-1); EOSINOPHILS % (AUTO) 0.5 % (0-6); HEMATOCRIT 39.8 % (42.0-52.0); LYMPHOCYTES % (AUTO) 14.1 % (21-51); MEAN CORPUSCULAR HGB CONC 32.6 g/dL (33.0-36.5); MEAN PLATELET VOLUME 8.7 FL (7.4-10.4); MONOCYTES # (AUTO) 0.7 X10'3 (0-0.9); MONOCYTES % (AUTO) 10.6 % (2-12); NEUTROPHILS % (AUTO) 74.3 % (42-75); PLATELET COUNT 164 X10'3 (140-440); RED BLOOD COUNT 4.19 X10'6 (4.70-6.10); RED CELL DISTRIBUTION WIDTH 13.7 % (11.5-14.5); WHITE BLOOD COUNT 6.8 X10'3 (4.5-11.0)
[2019-10-19 17:13] LABS: PARTIAL THROMBOPLASTIN TIME 29 SECONDS (22-32)
[2019-10-19 17:19] LABS: ALANINE AMINOTRANSFERASE 28 U/L (12-78); ALBUMIN 3.9 G/DL (3.4-5.0); ALBUMIN/GLOBULIN RATIO 1.1 (1.1-1.5); ALKALINE PHOSPHATASE 137 IU/L (46-116); ANION GAP 10 (8-16); ASPARTATE AMINO TRANSFERASE 32 U/L (10-37); BILIRUBIN,TOTAL 3.2 MG/DL (0.1-1.0); BLOOD UREA NITROGEN 21 MG/DL (7-18); BUN/CREATININE RATIO 20.6 (5.4-32.0); CALCIUM 9.2 MG/DL (8.5-10.1); CHLORIDE 108 MMOL/L (99-107); CREATININE 1.02 MG/DL (0.60-1.10); ETHANOL < 0.010 GM/DL (0.0-0.010); GLUCOSE 98 MG/DL (70-104); LIPASE 164 U/L (73-393); POTASSIUM 4.4 MMOL/L (3.5-5.1); SODIUM 147 MMOL/L (135-145); TOTAL CARBON DIOXIDE 29.3 MMOL/L (24-32); TOTAL PROTEIN 7.5 G/DL (6.4-8.2); eGFR 87 ML/MIN
[2019-10-19] MEDS ORDERED: FAMO20TA8 PO (21:19)
[2019-10-19] MEDS ORDERED: CARV3.123 PO (21:19)
[2019-10-19] MEDS ORDERED: IRBE75TA9 PO (21:19)
[2019-10-19] MEDS ORDERED: AMIT10TA6 PO (21:19)
[2019-10-19] MEDS ORDERED: POTA10CA44 PO (21:19)
[2019-10-19] MEDS ORDERED: PANT40TA4 PO (21:19)
[2019-10-19] MEDS ORDERED: SPIR50TA5 PO (21:19)
[2019-10-19] MEDS ORDERED: BUME1TAB9 PO (21:19)
== END 2019-10-19 16:58 | disposition left against medical advice (07) ==
LOC: ER 15:47
DX: R10.33 Periumbilical pain (principal); I48.91 Unspecified atrial fibrillation; I25.10 Atherosclerotic heart disease of native coronary artery without angina pectoris; I11.0 Hypertensive heart disease with heart failure; I50.9 Heart failure, unspecified; Z98.61 Coronary angioplasty status; Z79.82 Long term (current) use of aspirin; Z79.899 Other long term (current) drug therapy
CPT/HCPCS: 36415; 80053; 80320; 83690; 83735; 85025; 85610; 85730; 99283; Q9963

== ENCOUNTER 2019-10-19 18:21 | Inpatient (IN) | payer MEDICARE, MEDICAID ==
[~2019-10-19] VITALS: Ht 182.9 cm; Wt 105.2 kg
[2019-10-19] MEDS ORDERED: normal saline 1000ML IV soln IVB ONE (18:25)
[2019-10-19] MEDS ORDERED: ketorolac tromethamine 15mg/ml inj. IV ONE (18:25)
[2019-10-19] MEDS: diatr meglu/diatrizoate 30ml oral sol.-(3 dose) bottle PO SCH ×3 (18:53→20:26)
[2019-10-19 19:24] LABS: ETHANOL < 0.010 GM/DL (0.0-0.010); TROPONIN I < 0.04 NG/ML (0.0-0.05)
[2019-10-19] MEDS ORDERED: iohexol 300mg/ml 100ml inj. ONE (20:14)
[2019-10-19] MEDS ORDERED: FAMO20TA8 PO (21:19)
[2019-10-19] MEDS ORDERED: PANT40TA4 PO (21:19)
[2019-10-19] MEDS ORDERED: IRBE75TA9 PO (21:19)
[2019-10-19] MEDS ORDERED: SPIR50TA5 PO (21:19)
[2019-10-19] MEDS ORDERED: BUME1TAB9 PO (21:19)
[2019-10-19] MEDS ORDERED: POTA10CA44 PO (21:19)
[2019-10-19] MEDS ORDERED: CARV3.123 PO (21:19)
[2019-10-19] MEDS ORDERED: AMIT10TA6 PO (21:19)
--- NOTE | 2019-10-19 21:29 | NUR ---
PT'S BP 195/126. HE IS UNAWARE WHAT BP MEDICATIONS HE'S TAKEN TODAY. HE REPORTS STOPPING HIS ELLOQUIS D/T ABD PAIN. HE HAS NOT TOLD HIS PRIMARY DOCTOR WHICH MEDICATIONS HE'S STOPPED. PT NON COMPLIANT WITH BP MEDICATIONS AND LASIX/ALDACTONE. DR. ZENDEJAS MADE AWARE OF THIS AND HIS BP RUNNING HIGH. PT LAYING SUPINE IN BED. STATES THE TORADOL HELPED HIM.
--- NOTE | 2019-10-19 21:47 | NUR ---
PT GETS HIS MEDICATIONS CONFUSED. HE IS UNSURE WHICH ONES HE HAS BEEN TAKING EVERYDAY VERSUS WHICH ONES HE STOPPED. HE DOES NOT ACCURATELY KNOW HIS MED LIST. ATTEMPTED TO RECONCILE MEDS. DR ZENDEJAS AWARE IT MAY NOT BE ENTIRELY ACCURATE D/T PATIENT BEING CONFUSED WHICH ONES HE'S TAKING AND WHICH ONES HE STOPPED AT HIS OWN WILL NOT HIS DOCTORS REQUEST. PT THINKS HIS BP PILL CAUSES CANCER SO HE STOPPED TAKING IT. HE STOPPED TAKING ELLOQUID WHEN HE STATES HE THINKS IT WAS MAKING HIS STOMACH WORSE. HE DID NOT KNOW WHY HE WAS TAKING ELAVIL.
[2019-10-19] MEDS ORDERED: normal saline 1000ml 1,000 ML IV SCH (22:51)
[2019-10-19] MEDS ORDERED: magnesium Cl slow-release 64mg tablet PO PRN (22:55)
[2019-10-19] MEDS ORDERED: magnesium 2GM in 50ml NS 50 ML IV PRN (22:55)
[2019-10-19] MEDS ORDERED: magnesium 4gm in 100ml NS 100 ML IV PRN (22:55)
[2019-10-19] MEDS ORDERED: potassium CL 10mEq/100ml bag 100 ML IV PRN ×2 (22:55)
[2019-10-19] MEDS ORDERED: magnesium hydroxide 30ml (MOM) UD suspension PO PRN (22:55)
[2019-10-19] MEDS ORDERED: morphine 2 MG/ML inj. syringe IV PRN ×2 (22:55)
[2019-10-19] MEDS ORDERED: potassium Cl 20 mEq SR tablet PO PRN ×2 (22:55)
[2019-10-19] MEDS ORDERED: acetaminophen 325mg tablet PO PRN (22:55)
[2019-10-19] MEDS ORDERED: ondansetron/PF 4mg/2ml inj IV PRN (22:55)
[2019-10-19] MEDS ORDERED: mag hydrox/Alum hydrox/simeth 30ml oral suspension PO PRN (22:55)
[2019-10-19] MEDS ORDERED: nitroGLYCERIN 0.4mg SUBLingual tab SL PRN (23:25)
[2019-10-20] VITALS (7 sets, daily range): BP systolic 155–187; BP diastolic 84–117
--- NOTE | 2019-10-20 00:01 | NUR ---
Dr. Goodman contacted for blood pressure 175/120. Patient has no symptoms at this time, but has not taken his daily coreg. Order for 3.125mg coreg now given by Dr. Goodman.
[2019-10-20] MEDS ORDERED: carVEDilol 3.125mg tablet PO ONE (00:05)
--- NOTE | 2019-10-20 00:32 | NUR ---
Patient arrived to floor after receiving report from VISITOR SERVICES TECHNICIAN and settled into room. Coreg given for BP. Addendum: 10/20/19 at 0039 by Gracy Tamayo RN BP now 180/116. Patient also bladder scanned as had not voided since being in he ER. Has 488ml currently in bladder, stated, " I do not need to go right now but I will". Will continue to monitor. Addendum: 10/20/19 at 0800 by Gracy Tamayo RN Patient would not allow for complete skin check stating 'Im ok, i dont need you to check. Also kalli had not voided in the ER for 5 hours so discussed the need to try to void again and pt. stated "I already went in the toilet". Checked toilet and patient already flushed. Asked patient the colour and he stated robina and he felt like he went enough. Instructed patient to use the urinal next time so that we couuld see how much. Patient bladder scanned again at 0430 as no urine in urinal, revealed 0cc. Patient had gone to the toilet again.
[2019-10-20] MEDS: hydrALAZINE 20mg/ml inj. IV PRN ×3 (01:33→23:20)
--- NOTE | 2019-10-20 04:25 | NUR ---
BP/pulse rechecked. 166/119 pulse 65. Discussed with charge account identification clerk about BP still over 160 - charge stated that this was ok and no need to pursue at this time as the hydralazine could still potentially lower the BP.
[2019-10-20 04:55] LABS: BASOPHILS % (AUTO) 0.3 % (0-1); EOSINOPHILS % (AUTO) 0.7 % (0-6); HEMATOCRIT 36.5 % (42.0-52.0); LYMPHOCYTES # (AUTO) 0.7 X10'3 (1.1-4.8); LYMPHOCYTES % (AUTO) 13.1 % (21-51); MEAN CORPUSCULAR HEMOGLOBIN 31.3 PG (27.0-31.0); MEAN PLATELET VOLUME 8.4 FL (7.4-10.4); MONOCYTES # (AUTO) 0.8 X10'3 (0-0.9); MONOCYTES % (AUTO) 15.4 % (2-12); NEUTROPHILS # (AUTO) 3.7 X10'3 (1.8-7.7); NEUTROPHILS % (AUTO) 70.5 % (42-75); PLATELET COUNT 151 X10'3 (140-440); RED BLOOD COUNT 3.84 X10'6 (4.70-6.10); RED CELL DISTRIBUTION WIDTH 13.4 % (11.5-14.5); WHITE BLOOD COUNT 5.3 X10'3 (4.5-11.0)
[2019-10-20 05:11] LABS: ALBUMIN 3.5 G/DL (3.4-5.0); ANION GAP 7 (8-16); CALCIUM 8.6 MG/DL (8.5-10.1); CHLORIDE 109 MMOL/L (99-107); CREATININE 1.08 MG/DL (0.60-1.10); GLUCOSE 113 MG/DL (70-104); POTASSIUM 4.1 MMOL/L (3.5-5.1); SODIUM 146 MMOL/L (135-145); TOTAL CARBON DIOXIDE 30.3 MMOL/L (24-32); eGFR 82 ML/MIN
[2019-10-20 05:20] LABS: BLOOD UREA NITROGEN 22 MG/DL (7-18); BUN/CREATININE RATIO 20.4 (5.4-32.0)
--- NOTE | 2019-10-20 06:50 | NUR ---
Reported off to Jammie CANDELARIO
[2019-10-20] MEDS: potassium chloride 10mEq ER tablet PO SCH (07:30)
[2019-10-20] MEDS: pantoprazole 40mg Tablet.DR PO SCH (07:30)
[2019-10-20] MEDS: losartan 25mg tablet PO SCH (07:30)
[2019-10-20] MEDS: atorvastatin 20mg tablet PO SCH (07:30)
[2019-10-20] MEDS: spironolactone 50 MG tablet PO SCH (07:31)
[2019-10-20] MEDS: carVEDilol 3.125mg tablet PO SCH ×2 (07:31→19:40)
[2019-10-20] MEDS: famotidine 20mg tablet PO SCH (07:31)
[2019-10-20] MEDS: K and/or MAG REPLACEMENT MC SCH (07:35)
[2019-10-20] MEDS ORDERED: enoxaparin 40mg/0.4ml syringe SQ SCH (08:00)
[2019-10-20] MEDS ORDERED: bumetanide 1mg tablet PO SCH (08:00)
[2019-10-20 08:09] LABS: PARTIAL THROMBOPLASTIN TIME 30 SECONDS (22-32)
--- NOTE | 2019-10-20 09:00 | NUR ---
Pt. c/o dysuria, made aware, UA ordered and obtained.
[2019-10-20] MEDS: HYDROcodone/acetaminophen 5mg/325mg tablet PO PRN ×2 (10:37→19:45)
--- NOTE | 2019-10-20 10:51 | NUR ---
Telemetry called to notify this RN that pt. HR was dropping down into the 40s. Pt. is in a-fib, usual HR in 60s-70s, drops into 40s for no more than 2 seconds and returns. made aware. states to review cardiac medications, report back to him, and continue to monitor pt.
--- NOTE | 2019-10-20 11:36 | NUR ---
PAGER ID: [phone] MESSAGE: Ray Vlad 360B FYI pt. is on Coreg 3.12 BID and received a dose this AM. Do you want to DC? Happy Thanksgiving! Jammie [phone]
[2019-10-20 11:53] LABS: CLARITY,URINE CLEAR (Clear); COLOR,URINE YELLOW (Yellow); GLUCOSE, URINE NEGATIVE (Neg); KETONES,URINE NEGATIVE (Neg); LEUKOCYTE ESTERASE ,URINE NEGATIVE (Neg); NITRITES, URINE NEGATIVE (Neg); OCCULT BLOOD,URINE NEGATIVE (Neg); PROTEIN,URINE TRACE mg/dl (Neg)
[2019-10-20 11:57] LABS: UA COLLECTION TYPE CLN CATCH MIDSTREAM
[2019-10-20 12:02] LABS: BACTERIA,URINE NONE SEEN /HPF (Neg); MUCUS STRANDS NONE SEEN /LPF (Neg); RBC,URINE NONE SEEN /HPF (0-2); SQUAMOUS EPITHELIAL CELL,UR FEW /LPF (FEW); WBC,URINE 0-4 /HPF (0-4)
--- NOTE | 2019-10-20 12:05 | NUR ---
Tele called to update this RN on pt. HR. HR was in 40s earlier for no more than 2s, television news video editor stated that one seeing the tele strips she recognizes these as pauses lasting no more than 2 s.
--- NOTE | 2019-10-20 12:12 | NUR ---
PAGER ID: [phone] MESSAGE: Ray Chu 360B - Just FYI- no need to return page. Tele notified this RN that the earlier HR in 40s, were 2 second pauses. Jammie [phone]
[2019-10-20 12:33] LABS: ALANINE AMINOTRANSFERASE 19 U/L (12-78); ALBUMIN/GLOBULIN RATIO 1.1 (1.1-1.5); ALKALINE PHOSPHATASE 121 IU/L (46-116); ASPARTATE AMINO TRANSFERASE 28 U/L (10-37); BILIRUBIN,DIRECT 0.4 MG/DL (0-0.3); BILIRUBIN,TOTAL 2.7 MG/DL (0.1-1.0); TOTAL PROTEIN 6.7 G/DL (6.4-8.2)
--- NOTE | 2019-10-20 13:51 | NUR ---
Pt. reports having a black stool. Educated and reminded not to flush and to throw toilet paper in trash next time he has a bowel movement.
--- NOTE | 2019-10-20 13:55 | NUR ---
PAGER ID: [phone] MESSAGE: Ray Chu 360B Pt. requesting gas-x or simethicone for gas pains. Ate very little for lunch. Jammie [phone]
--- NOTE | 2019-10-20 15:06 | NUR ---
Pt. bladder scanned. 47 ml in bladder.
[2019-10-20] MEDS: simethicone 80mg chew tab PO PRN (15:12)
--- NOTE | 2019-10-20 16:20 | NUR ---
Assessed pt's BM. Black stool. made aware. Order for occult.
--- NOTE | 2019-10-20 18:17 | NUR ---
Problems reprioritized. Patient report given, questions answered & plan of care reviewed with KODAK Funk. Pt. sitting up on side of bed, alert and awake. Tele monitor on and working.
--- NOTE | 2019-10-20 18:54 | NUR ---
Patient in room [facility]. I have received report from KODAK Vo and had the opportunity to ask questions and assume patient care. Addendum: 10/20/19 at 1855 by Gill Gale RN Amended: Links added.
[2019-10-20] MEDS: amitriptyline 10mg tablet PO SCH (22:43)
[2019-10-21] VITALS (7 sets, daily range): BP systolic 144–211; BP diastolic 70–125
[2019-10-21] MEDS: HYDROcodone/acetaminophen 5mg/325mg tablet PO PRN ×5 (00:17→21:14)
--- NOTE | 2019-10-21 00:19 | NUR ---
Pt c/o heading throbbing after taking hydralazine prn hypertensin. B/P currently 164/95. Pt rates pain as a "5" given norco 5/325mg. Worried about taking hydralazine again but says since it helped his B/P he doesn't want to be telling his doctor what is best.
--- NOTE | 2019-10-21 04:16 | NUR ---
received tele report that patient having 3.0 and 3.7 pauses, called Dr. Goodman and ordered echocardiogram and hold am dose of coreg, and refer to am hospitalist Addendum: 10/21/19 at 0644 by Gill Gale RN MD also suggesting to transfer patient to PCU but would like to wait for daytime hospitalist to decide
[2019-10-21 06:22] LABS: BASOPHILS % (AUTO) 0.4 % (0-1); EOSINOPHILS % (AUTO) 0.8 % (0-6); HEMATOCRIT 35.8 % (42.0-52.0); HEMOGLOBIN 11.7 g/dl (14.0-17.9); LYMPHOCYTES # (AUTO) 0.6 X10'3 (1.1-4.8); LYMPHOCYTES % (AUTO) 13.1 % (21-51); MEAN CORPUSCULAR HEMOGLOBIN 30.8 PG (27.0-31.0); MEAN CORPUSCULAR HGB CONC 32.8 g/dL (33.0-36.5); MEAN CORPUSCULAR VOLUME 93.7 FL (78-98); MEAN PLATELET VOLUME 8.5 FL (7.4-10.4); MONOCYTES # (AUTO) 0.7 X10'3 (0-0.9); MONOCYTES % (AUTO) 15.1 % (2-12); NEUTROPHILS # (AUTO) 3.4 X10'3 (1.8-7.7); NEUTROPHILS % (AUTO) 70.6 % (42-75); PLATELET COUNT 149 X10'3 (140-440); RED BLOOD COUNT 3.82 X10'6 (4.70-6.10); RED CELL DISTRIBUTION WIDTH 13.1 % (11.5-14.5); WHITE BLOOD COUNT 4.8 X10'3 (4.5-11.0)
[2019-10-21 06:27] LABS: ALBUMIN 3.4 G/DL (3.4-5.0); ANION GAP 9 (8-16); BLOOD UREA NITROGEN 20 MG/DL (7-18); BUN/CREATININE RATIO 19.6 (5.4-32.0); CALCIUM 8.6 MG/DL (8.5-10.1); CHLORIDE 109 MMOL/L (99-107); CREATININE 1.02 MG/DL (0.60-1.10); GLUCOSE 103 MG/DL (70-104); MAGNESIUM 2.2 MG/DL (1.5-2.4); POTASSIUM 3.9 MMOL/L (3.5-5.1); SODIUM 146 MMOL/L (135-145); TOTAL CARBON DIOXIDE 28.4 MMOL/L (24-32); eGFR 87 ML/MIN
--- NOTE | 2019-10-21 06:41 | NUR ---
Patient in room [facility]. I have received report from Blessing Nicole RN and had the opportunity to ask questions and assume patient care.
--- NOTE | 2019-10-21 06:43 | NUR ---
Problems reprioritized. Patient report given, questions answered & plan of care reviewed with KODAK Arenas. Addendum: 10/21/19 at 0643 by Gill Gale RN Amended: Links added.
--- NOTE | 2019-10-21 06:47 | NUR ---
Patient in room [facility]. I have received report from Blessing Nicole RN and had the opportunity to ask questions and assume patient care.
[2019-10-21] MEDS: K and/or MAG REPLACEMENT MC SCH (07:19)
[2019-10-21] MEDS: famotidine 20mg tablet PO SCH (07:39)
[2019-10-21] MEDS: pantoprazole 40mg Tablet.DR PO SCH (07:39)
[2019-10-21] MEDS: losartan 25mg tablet PO SCH (07:40)
[2019-10-21] MEDS: furosemide 40mg/4ml inj IV SCH ×2 (07:40→21:03)
[2019-10-21] MEDS: potassium chloride 10mEq ER tablet PO SCH (07:40)
[2019-10-21] MEDS: atorvastatin 20mg tablet PO SCH (07:40)
[2019-10-21] MEDS: spironolactone 50 MG tablet PO SCH (07:40)
--- NOTE | 2019-10-21 10:43 | NUR ---
IR came to do paracentesis but not enough fluid found. Pt having elevated BP today.
[2019-10-21] MEDS ORDERED: cloNIDine 0.1 mg tablet PO ONE (10:50)
[2019-10-21 11:23] LABS: OCCULT BLOOD STOOL NEGATIVE (Neg)
--- NOTE | 2019-10-21 13:06 | NUR ---
called regarding frequent unsustained pauses and low HR. Phosphorus added to morning labs asK and MG were WNL. Pt asymptomatic.
[2019-10-21 13:46] LABS: PHOSPHORUS 3.8 MG/DL (2.3-4.5)
[2019-10-21] MEDS: simethicone 80mg chew tab PO PRN (17:16)
--- NOTE | 2019-10-21 18:20 | NUR ---
Problems reprioritized. Patient report given, questions answered & plan of care reviewed with Blessing Nicole RN.
--- NOTE | 2019-10-21 18:46 | NUR ---
Patient in room [facility]. I have received report from KODAK Arenas and had the opportunity to ask questions and assume patient care. Addendum: 10/21/19 at 1846 by Gill Gale RN Amended: Links added.
[2019-10-21] MEDS: lisinopril 10 MG tablet PO SCH (21:03)
[2019-10-21] MEDS: amitriptyline 10mg tablet PO SCH (21:06)
--- NOTE | 2019-10-22 03:27 | NUR ---
received call from tele that pt having 4.45 pause, called Dr. juarez and ordered to transfer patient to PCU unit. patient VS 166/92, HR 61, RR 20, O2 sat 95 on RA. patient denies any chest pain and not in any distress.
--- NOTE | 2019-10-22 03:28 | NUR ---
patient refused to received hydralazine for his SBP above 160. He stated " i will take it when i get transferred". Addendum: 10/22/19 at 0331 by Gill Gale RN notified patient about the transfer and agreed.
--- NOTE | 2019-10-22 03:31 | NUR ---
Problems reprioritized. Patient report given, questions answered & plan of care reviewed with KODAK mercer. Addendum: 10/22/19 at 0448 by Gill Gale RN report given to Mallika
[2019-10-22] MEDS: hydrALAZINE 20mg/ml inj. IV PRN (04:10)
--- NOTE | 2019-10-22 04:24 | NUR ---
Patient in room PCU 3023. I have received report from Gill CANDELARIO and had the opportunity to ask questions and assume patient care. Hydralazine was not given before transferring onto unit, blood pressure 178/119 when in room with all belongings set up.
[2019-10-22 04:30] VITALS: BP 178/119
[2019-10-22 05:22] LABS: HBSAG SCREEN Negative (Negative); HEP A AB, IGM Negative (Negative); HEP B CORE AB, IGM Negative (Negative); HEPATITIS C ANTIBODY <0.1 s/co ratio (0.0-0.9)
[2019-10-22 06:08] LABS: ALBUMIN 3.6 G/DL (3.4-5.0); ANION GAP 7 (8-16); BLOOD UREA NITROGEN 22 MG/DL (7-18); BUN/CREATININE RATIO 16.5 (5.4-32.0); CALCIUM 9.3 MG/DL (8.5-10.1); CHLORIDE 106 MMOL/L (99-107); CREATININE 1.33 MG/DL (0.60-1.10); GLUCOSE 91 MG/DL (70-104); MAGNESIUM 1.9 MG/DL (1.5-2.4); SODIUM 145 MMOL/L (135-145); TOTAL CARBON DIOXIDE 32.4 MMOL/L (24-32); eGFR 64 ML/MIN
[2019-10-22 06:23] LABS: BASOPHILS % (AUTO) 0.5 % (0-1); EOSINOPHILS # (AUTO) 0.1 X10'3 (0-0.9); EOSINOPHILS % (AUTO) 1.4 % (0-6); HEMATOCRIT 38.3 % (42.0-52.0); HEMOGLOBIN 12.7 g/dl (14.0-17.9); LYMPHOCYTES # (AUTO) 1.1 X10'3 (1.1-4.8); LYMPHOCYTES % (AUTO) 21.4 % (21-51); MEAN CORPUSCULAR VOLUME 93.7 FL (78-98); MEAN PLATELET VOLUME 8.8 FL (7.4-10.4); MONOCYTES # (AUTO) 0.8 X10'3 (0-0.9); MONOCYTES % (AUTO) 15.1 % (2-12); NEUTROPHILS # (AUTO) 3.2 X10'3 (1.8-7.7); NEUTROPHILS % (AUTO) 61.6 % (42-75); PLATELET COUNT 165 X10'3 (140-440); RED BLOOD COUNT 4.09 X10'6 (4.70-6.10); RED CELL DISTRIBUTION WIDTH 13.3 % (11.5-14.5); WHITE BLOOD COUNT 5.1 X10'3 (4.5-11.0)
--- NOTE | 2019-10-22 06:33 | NUR ---
Patient in room PCU 3023. I have received report from Marie CANDELARIO and had the opportunity to ask questions and assume patient care.
--- NOTE | 2019-10-22 06:45 | NUR ---
Problems reprioritized. Patient report given, questions answered & plan of care reviewed with Mallika CANDELARIO.
[2019-10-22] MEDS: K and/or MAG REPLACEMENT MC SCH (08:00)
[2019-10-22 08:15] VITALS: BP 175/79
[2019-10-22] MEDS: potassium chloride 10mEq ER tablet PO SCH (08:24)
[2019-10-22] MEDS: furosemide 40mg/4ml inj IV SCH (08:24)
[2019-10-22] MEDS: famotidine 20mg tablet PO SCH (08:24)
[2019-10-22] MEDS: spironolactone 50 MG tablet PO SCH (08:24)
[2019-10-22] MEDS: atorvastatin 20mg tablet PO SCH (08:24)
[2019-10-22] MEDS: pantoprazole 40mg Tablet.DR PO SCH (08:24)
[2019-10-22] MEDS: lisinopril 10 MG tablet PO SCH (08:26)
[2019-10-22] MEDS ORDERED: FURO40TA4 PO (10:12)
[2019-10-22] MEDS ORDERED: LISI10TA4 PO (10:12)
[2019-10-22 11:00] VITALS: BP 160/113
--- NOTE | 2019-10-22 11:01 | NUR ---
Page Dr. Woodall PAGER ID: [phone] MESSAGE: Room 3023C Ray Chu: Did you want to still order the [place] 5 for pain at home on this patient? Thank you, Mallika ext [phone].
[2019-10-22] MEDS ORDERED: HYDR-3965 PO (11:17)
[2019-10-22] MEDS ORDERED: HYDR-4383 PO ×2 (11:38)
--- NOTE | 2019-10-22 12:10 | NUR ---
Patient stable for discharge per MD orders. All discharge instructions reviewed with patient and all questions answered. New prescriptions e-scripted to patient's preferred pharmacy & hard copy prescription for [place] given to patient. PIV & ekg monitor discontinued. Belongings collected and sent with patient. Patient left in private vehicle with friend. Patient wheeled to lobby by PCT aide.
== END 2019-10-22 12:14 | disposition home or self-care (01) | DRG 391 ==
LOC: ER 18:21 → ED HOLD 23:22 → EDBEDREQ 23:57 → SUR 3N 23:59 → PCU 3S 10-22 03:47
PROVIDERS: ADMIT Hospitalist; ATTEND Internal Medicine
DX: K31.89 Other diseases of stomach and duodenum (principal); I50.43 Acute on chronic combined systolic (congestive) and diastolic (congestive) heart failure; I42.9 Cardiomyopathy, unspecified; I48.20 Chronic atrial fibrillation, unspecified; I31.3 Pericardial effusion (noninflammatory); I48.21 Permanent atrial fibrillation; R10.9 Unspecified abdominal pain; I48.91 Unspecified atrial fibrillation; I25.10 Atherosclerotic heart disease of native coronary artery without angina pectoris; G89.29 Other chronic pain; I49.5 Sick sinus syndrome; I73.9 Peripheral vascular disease, unspecified; I11.0 Hypertensive heart disease with heart failure; E78.5 Hyperlipidemia, unspecified; G47.00 Insomnia, unspecified; Z95.1 Presence of aortocoronary bypass graft; Z79.899 Other long term (current) drug therapy; Z79.01 Long term (current) use of anticoagulants; Z90.49 Acquired absence of other specified parts of digestive tract; Z95.5 Presence of coronary angioplasty implant and graft
CPT/HCPCS: 36415; 74177; 76705; 80048; 80074; 80076; 80320; 81001; 82272; 83735; 83880; 84100; 84484; 85025; 85610; 85730; 87081; 93005; 93306; 96374; 97116; 97161; 99285; G0378; J0360; J1885; J1940; J2270; Q9963; Q9967

== ENCOUNTER 2020-11-07 13:13 | Emergency (ER) | payer MEDICARE, MEDICAID ==
[~2020-11-07] VITALS: Ht 185.4 cm; Wt 95.8 kg
[~2020-11-07 13:13] MED LIST changes: +AMIT10TA6 PO; -ASPI-611 PO; -CLON0.1T2 PO; +FAMO20TA8 PO; -FURO20TA4 PO; +HYDR-4383 PO; +LISI10TA4 PO; -LOSA25TA96 PO; -METO25TA6 PO; -OMEP20CA11 PO; +PANT40TA54 PO; +POTA10CA44 PO; +SPIR50TA5 PO
[2020-11-07 14:10] LABS: BASOPHILS % (AUTO) 0.9 % (0-1); EOSINOPHILS # (AUTO) 0.1 X10'3 (0-0.9); EOSINOPHILS % (AUTO) 2.4 % (0-6); HEMATOCRIT 37.1 % (42.0-52.0); LYMPHOCYTES # (AUTO) 0.9 X10'3 (1.1-4.8); LYMPHOCYTES % (AUTO) 18.8 % (21-51); MEAN CORPUSCULAR HEMOGLOBIN 30.6 PG (27.0-31.0); MEAN CORPUSCULAR HGB CONC 32.4 g/dL (33.0-36.5); MEAN CORPUSCULAR VOLUME 94.3 FL (78-98); MEAN PLATELET VOLUME 7.8 FL (7.4-10.4); MONOCYTES # (AUTO) 0.6 X10'3 (0-0.9); MONOCYTES % (AUTO) 12.9 % (2-12); NEUTROPHILS # (AUTO) 3.3 X10'3 (1.8-7.7); PLATELET COUNT 220 X10'3 (140-440); RED BLOOD COUNT 3.93 X10'6 (4.70-6.10); RED CELL DISTRIBUTION WIDTH 13.6 % (11.5-14.5)
[2020-11-07 14:22] LABS: ALANINE AMINOTRANSFERASE 23 U/L (12-78); ALBUMIN 3.8 G/DL (3.4-5.0); ALBUMIN/GLOBULIN RATIO 0.8 (1.1-1.5); ALKALINE PHOSPHATASE 153 IU/L (46-116); ANION GAP 5 (8-16); ASPARTATE AMINO TRANSFERASE 22 U/L (10-37); BLOOD UREA NITROGEN 32 MG/DL (7-18); BUN/CREATININE RATIO 27.4 (5.4-32.0); CALCIUM 8.6 MG/DL (8.5-10.1); CHLORIDE 102 MMOL/L (99-107); CREATININE 1.17 MG/DL (0.60-1.10); GLUCOSE 73 MG/DL (70-104); LIPASE 298 U/L (73-393); POTASSIUM 3.8 MMOL/L (3.5-5.1); SODIUM 141 MMOL/L (135-145); TOTAL CARBON DIOXIDE 34.1 MMOL/L (24-32); TOTAL PROTEIN 8.4 G/DL (6.4-8.2); eGFR 74 ML/MIN
--- NOTE | 2020-11-07 15:06 | NUR ---
UA SEND TO LAB
[2020-11-07 15:07] VITALS: BP 156/99
[2020-11-07 15:19] LABS: CLARITY,URINE CLEAR (Clear); COLOR,URINE YELLOW (Yellow); GLUCOSE, URINE NEGATIVE (Neg); KETONES,URINE NEGATIVE (Neg); LEUKOCYTE ESTERASE ,URINE NEGATIVE (Neg); NITRITES, URINE NEGATIVE (Neg); OCCULT BLOOD,URINE NEGATIVE (Neg); PROTEIN,URINE NEGATIVE (Neg); UA COLLECTION TYPE CLN CATCH MIDSTREAM
[2020-11-07] MEDS ORDERED: ACET-1025 PO (15:25)
== END 2020-11-07 15:34 | disposition home or self-care (01) ==
LOC: ER 13:14
DX: R10.9 Unspecified abdominal pain (principal); L08.9 Local infection of the skin and subcutaneous tissue, unspecified; I48.91 Unspecified atrial fibrillation; I25.10 Atherosclerotic heart disease of native coronary artery without angina pectoris; I50.9 Heart failure, unspecified; I11.0 Hypertensive heart disease with heart failure; Z98.61 Coronary angioplasty status; Z90.49 Acquired absence of other specified parts of digestive tract; Z98.890 Other specified postprocedural states; Z79.899 Other long term (current) drug therapy
CPT/HCPCS: 36415; 80053; 81003; 83690; 85025; 99283; 99284

== ENCOUNTER 2021-12-21 12:22 | Emergency (ER) | payer MEDICARE, MEDICAID ==
[~2021-12-21] VITALS: Ht 182.9 cm; Wt 113.0 kg
[~2021-12-21 12:22] MED LIST changes: +LISI10TA27 PO; -LISI10TA4 PO
[2021-12-21 14:42] VITALS: BP 143/98
[2021-12-21 14:55] LABS: BASOPHILS % (AUTO) 0.5 % (0-1); EOSINOPHILS % (AUTO) 0.5 % (0-6); HEMATOCRIT 34.3 % (42.0-52.0); HEMOGLOBIN 11.2 g/dl (14.0-17.9); LYMPHOCYTES # (AUTO) 0.7 X10'3 (1.1-4.8); LYMPHOCYTES % (AUTO) 8.4 % (21-51); MEAN CORPUSCULAR HEMOGLOBIN 31.6 PG (27.0-31.0); MEAN CORPUSCULAR HGB CONC 32.7 g/dL (33.0-36.5); MEAN CORPUSCULAR VOLUME 96.7 FL (78-98); MEAN PLATELET VOLUME 6.9 FL (7.4-10.4); MONOCYTES # (AUTO) 0.8 X10'3 (0-0.9); MONOCYTES % (AUTO) 9.7 % (2-12); NEUTROPHILS # (AUTO) 6.8 X10'3 (1.8-7.7); NEUTROPHILS % (AUTO) 80.9 % (42-75); PLATELET COUNT 288 X10'3 (140-440); RED BLOOD COUNT 3.55 X10'6 (4.70-6.10); WHITE BLOOD COUNT 8.5 X10'3 (4.5-11.0)
[2021-12-21 15:12] LABS: ALANINE AMINOTRANSFERASE 6 U/L (12-78); ALBUMIN 3.1 G/DL (3.4-5.0); ALBUMIN/GLOBULIN RATIO 0.6 (1.1-1.5); ALKALINE PHOSPHATASE 126 IU/L (46-116); ANION GAP 6 (8-16); ASPARTATE AMINO TRANSFERASE 19 U/L (10-37); BILIRUBIN,TOTAL 1.3 MG/DL (0.1-1.0); BLOOD UREA NITROGEN 26 MG/DL (7-18); CHLORIDE 103 MMOL/L (99-107); CREATININE 1.13 MG/DL (0.60-1.10); GLUCOSE 98 MG/DL (70-104); POTASSIUM 4.7 MMOL/L (3.5-5.1); SODIUM 140 MMOL/L (135-145); TOTAL CARBON DIOXIDE 30.9 MMOL/L (24-32); TOTAL PROTEIN 8.4 G/DL (6.4-8.2); eGFR 77 ML/MIN
== END 2021-12-21 15:36 | disposition home or self-care (01) ==
LOC: ER 12:22
DX: I87.8 Other specified disorders of veins (principal); S81.802D Unspecified open wound, left lower leg, subsequent encounter; S81.801D Unspecified open wound, right lower leg, subsequent encounter; I48.91 Unspecified atrial fibrillation; I25.10 Atherosclerotic heart disease of native coronary artery without angina pectoris; I11.0 Hypertensive heart disease with heart failure; I50.9 Heart failure, unspecified; Z87.81 Personal history of (healed) traumatic fracture; Z95.5 Presence of coronary angioplasty implant and graft; Z90.49 Acquired absence of other specified parts of digestive tract; Z79.899 Other long term (current) drug therapy; X58.XXXD Exposure to other specified factors, subsequent encounter
CPT/HCPCS: 36415; 80053; 83880; 85025; 99283

== ENCOUNTER 2021-12-30 17:18 | Emergency (ER) | payer MEDICARE, MEDICAID ==
[~2021-12-30] VITALS: Ht 182.9 cm; Wt 113.6 kg
[2021-12-30 17:30] VITALS: BP 136/83
[2021-12-30] MEDS ORDERED: POTA-192 PO (17:38)
[2021-12-30] MEDS ORDERED: HYDR-3965 PO (17:38)
[2021-12-30] MEDS ORDERED: FURO-150 PO (17:38)
[2021-12-30] MEDS ORDERED: NAPR-56 PO (17:38)
[2021-12-30] MEDS ORDERED: HYDROcodone/acetaminophen 5mg/325mg tablet PO ONE (17:40)
== END 2021-12-30 17:57 | disposition home or self-care (01) ==
LOC: ER 17:19
DX: M79.604 Pain in right leg (principal); I89.0 Lymphedema, not elsewhere classified; I25.10 Atherosclerotic heart disease of native coronary artery without angina pectoris; I11.0 Hypertensive heart disease with heart failure; I50.9 Heart failure, unspecified; I48.91 Unspecified atrial fibrillation; Z87.81 Personal history of (healed) traumatic fracture; Z95.5 Presence of coronary angioplasty implant and graft; Z90.49 Acquired absence of other specified parts of digestive tract; Z79.899 Other long term (current) drug therapy
CPT/HCPCS: 99283